=== PATIENT | male | born 1960 | race Caucasian/White ===

== ENCOUNTER 2018-08-29 20:48 | Emergency (ER) | payer BC, OTHER ==
[~2018-08-29] VITALS: Ht 182.9 cm; Wt 96.7 kg
[~2018-08-29 20:48] MED LIST: APIX5TAB2 PO; ASP81CT PO; ATR20T PO; Famotidine PO; IBUP1TAB15 PO; METO25TA PO; MULT-974 PO; NAPR220T76 PO; PANT40SU PO; PARO30TA2 PO; PNT40TEC PO; VIBRID PO; VILA40TA PO
[2018-08-29 21:23] LABS: BASOPHILS # (AUTO) 0.1 10^3/uL (0.0-0.1); BASOPHILS % (AUTO) 1 % (0-10); EOSINOPHILS # (AUTO) 0.3 10^3/uL (0.0-0.3); EOSINOPHILS % (AUTO) 4 % (0-10); HEMATOCRIT 42 % (40-54); LYMPHOCYTES # (AUTO) 2.8 X 10^3 (1.0-4.0); LYMPHOCYTES % (AUTO) 35 % (12-44); MEAN CORPUSCULAR HEMOGLOBIN 28 PG (25-34); MEAN CORPUSCULAR HGB CONC 34 G/DL (32-36); MEAN CORPUSCULAR VOLUME 82 FL (80-99); MONOCYTES # (AUTO) 0.9 X 10^3 (0.0-1.0); MONOCYTES % (AUTO) 11 % (0-12); NEUTROPHILS % (AUTO) 50 % (42-75); PLATELET COUNT 397 10^3/uL (130-400); RED CELL DISTRIBUTION WIDTH 13.6 % (10.0-14.5); WHITE BLOOD COUNT 8.1 10^3/uL (4.3-11.0)
[2018-08-29 21:28] LABS: INR 0.9 (0.8-1.4); PROTHROMBIN TIME PATIENT 12.8 SEC (12.2-14.7)
[2018-08-29] MEDS ORDERED: ASPIRIN 81 MG CHEW (CHILDREN'S ASA) PO ONE (21:30)
[2018-08-29 21:38] LABS: ALANINE AMINOTRANSFERASE 35 U/L (0-55); ALBUMIN 4.3 GM/DL (3.2-4.5); ALKALINE PHOSPHATASE 143 U/L (40-136); AMYLASE 61 U/L (25-125); BILIRUBIN,TOTAL 0.4 MG/DL (0.1-1.0); BUN/CREATININE RATIO 10; CALCIUM 10.4 MG/DL (8.5-10.1); CARBON DIOXIDE 22 MMOL/L (21-32); CHLORIDE 105 MMOL/L (98-107); GFR ESTIMATED > 60; GLUCOSE 109 MG/DL (70-105); LIPASE 34 U/L (8-78); MAGNESIUM 2.1 MG/DL (1.8-2.4); POTASSIUM 3.7 MMOL/L (3.6-5.0); SODIUM 139 MMOL/L (135-145); TOTAL PROTEIN 7.7 GM/DL (6.4-8.2)
[2018-08-29] MEDS ORDERED: NS 100 ML (IVPB) BAG IV ONE (23:00)
[2018-08-29] MEDS ORDERED: IOHEXOL 350 MG/ML 150 ML (OMNIPAQUE 350) VIAL IV ONE (23:00)
[2018-08-29] MEDS ORDERED: HOLD METFORMIN - RECEIVED CONTRAST 20 ML VIAL IV SCH (23:00)
[2018-08-30] MEDS ORDERED: METH4TAB PO (00:37)
--- NOTE | 2018-08-30 00:37 | ED Chest Pain ---
General Chief Complaint: Chest Wall Stated Complaint: PAIN IN BOTTOM OF RIB CAGE Nursing Triage Note: Patient reports in his R lower rib area x 1 week that became much worse this afternoon about 2. patient reports pain is worse with deep breathing, walking and laying back Nursing Sepsis Screen: No Definite Risk Source: patient History of Present Illness Date Seen by Provider: Aug 29, 2018 Time Seen by Provider: 21:10 Initial Comments PT ARRIVES VIA POV FROM HOME STATES THAT FOR THE LAST WEEK HE HAS HAD INTERMITTENT PAIN TO RIGHT ANTERIOR LOWER RIB AREA PAIN IS WORSE WITH DEEP BREATHS, RAISING HIS ARMS, LAYING FLAT AND STRETCHING, ETC DOES NOT FEEL SHORT OF BREATH NO FEVER NO COUGH NO SWEATS OR FEVER/CHILLS NO RECENT ILLNESS NO SWELLING IN LEGS / FEET OR PAIN IN CALVES PT STATES PAIN BEGAN AFTER PUTTING UP A "SLIP N' SLIDE" A WEEK AGO, THEN WAS PLAYING ON IT, AND HIT HARD ON HIS CHEST HE WAS PLAYING ON IT, GOING DOWN THE SLIDE ON HIS FRONT SIDE PT HAS ALSO BEEN HELPING FAMILY MOVE ALL WEEK--LIFTING BOXES, ETC. THESE MOVEMENTS MAKE PAIN WORSE PT STATES HE DID HAVE DVT IN LEFT LEG AND HAD BILATERAL P.E.'[S IN 2014--DUE TO TRAUMA TO LEFT LEG WAS ON BLOOD THINNERS FOR 6 MONTHS AND NO PROBLEMS SINCE HAD NOT BEEN TAKING ANY ASPIRIN UNTIL A MONTH AGO--STARTED TAKING A BABY ASPIRIN STATES THIS PAIN "FEELS A LITTLE LIKE" THE PAIN HE HAD WITH P.E. AND "GOT SCARED" AND WORRIED HE HAS ANOTHER P.E. PT HAS NOT TAKEN ANYTHING FOR PAIN UNTIL TONIGHT---TOOK ADVIL PM, AN ALEVE AND 1 BABY ASPIRIN TONIGHT SYMPTOMS NO DIFFERENT TONIGHT HAS NOT SOUGHT CARE UNTIL TONIGHT PT IS NOT HAVING ANY PAIN NOW PCP: DR. CARRILLO Allergies and Home Medications Allergies Coded Allergies: No Known Drug Allergies (Unverified , 01/05/12) Home Medications Apixaban 5 Mg Tablet, 10 MG PO BID TAKE 2 TABLETS BY MOUTH TWICE DAILY FOR 5 DAYS THEN DECREASE DOSE TO 1 TABLET BY MOUTH TWICE DAILY Prescribed by: ALBIN RUBIO on 01/24/14 1021 Methylprednisolone 4 Mg Tab.ds.pk, 4 MG PO UD Prescribed by: LUISA DA SILVA on 08/30/18 0037 Vilazodone Hydrochloride 40 Mg Tablet, 40 MG PO HS, (Reported) [Famotidine] 20 MG TABLET, 20 MG PO BID Prescribed by: ALBIN RUBIO on 01/24/14 1021 Patient Home Medication List Home Medication List Reviewed: Yes Review of Systems Review of Systems Constitutional: no symptoms reported; No diaphoresis, No dizziness, No fever Respiratory: No Symptoms Reported; Denies Cough, Denies Orthopnea, Denies Shortness of Air Cardiovascular: See HPI; Denies Edema, Denies Irregular Heart Rate, Denies Lightheadedness, Denies Palpitations, Denies Syncope Gastrointestinal: No Symptoms Reported; Denies Abdominal Pain, Denies Nausea, Denies Vomiting Genitourinary: No Symptoms Reported Musculoskeletal: see HPI Skin: no symptoms reported Psychiatric/Neurological: No Symptoms Reported Endocrine: No Symptoms Reported Hematologic/Lymphatic: See HPI Past Lezqfdr-Gsgzks-Ebbnux Hx Patient Social History Alcohol Use: Denies Use Recreational Drug Use: No Smoking Status: Never a Smoker 2nd Hand Smoke Exposure: No Recent Foreign Travel: No Contact w/Someone Who Travel: No Recent Infectious Disease Expo: No Recent Hopitalizations: No Immunizations Up To Date Date of Influenza Vaccine: Jan 23, 2012 Past Medical History Surgeries: Yes (SHOULDER SURGERY; CARDIAC CATH--NORMAL) Orthopedic Respiratory: Yes (BILATERAL P.E.'S DUE TO DVT LEFT LEG--FROM TRAUMA TO LEG 2014) Pulmonary Embolism Cardiac: Yes (DVT LEFT LEG DUE TO TRAUMA, FOLLOWED BY BILATERAL P.E.'S 2014--ON ANTICOAGULANTS X 6 MONTHS) Deep Vein Thrombosis Neurological: No Reproductive Disorders: No Genitourinary: No Gastrointestinal: No Musculoskeletal: No Endocrine: No HEENT: No Cancer: No Psychosocial: Yes Depression Integumentary: No Blood Disorders: Yes (DVT/P.E.) Physical Exam Vital Signs Vital Signs - First Documented 08/29/18 08/30/18 20:58 00:52 Temp 98.5 Pulse 69 Resp 18 B/P (MAP) 135/101 (112) Pulse Ox 96 O2 Delivery Room Air Capillary Refill : Less Than 3 Seconds Height, Weight, BMI Height: 6'0.00" Weight: 213lbs. 2.0oz. 96.729070ys; 28.48 BMI Method:Stated General Appearance: No Apparent Distress, WD/WN Neck: Full Range of Motion, Normal Inspection, Non Tender, Supple; No Carotid Bruit, No JVD Respiratory: Normal Breath Sounds, No Accessory Muscle Use, No Respiratory Distress, Other (TENDERNESS TO RIGHT ANTERIOR LOWER RIB AREA. PALPATION REPRODUCES PAIN. NO CREPITANCE OR SUB Q AIR. NO EXTERNAL EVIDENCE OF TRAUMA) Cardiovascular: Regular Rate, Rhythm, No Edema, No JVD, No Murmur Gastrointestinal: Normal Bowel Sounds, No Organomegaly, No Pulsatile Mass, Non Tender, Soft Extremity: Normal Capillary Refill, Normal Inspection, Normal Range of Motion, Non Tender, No Calf Tenderness, No Pedal Edema Neurologic/Psychiatric: Alert, Oriented x3, No Motor/Sensory Deficits, motor vehicle examiner II- XII Norm as Tested Skin: Normal Color, Warm/Dry; No Ecchymosis Progress/Results/Core Measures Results/Orders Lab Results Laboratory Tests Test 08/29/18 21:00 Range/Units White Blood Count 8.1 4.3-11.0 10^3/uL Red Blood Count 5.07 4.35-5.85 10^6/uL Hemoglobin 14.0 13.3-17.7 G/DL Hematocrit 42 40-54 % Mean Corpuscular Volume 82 80-99 FL Mean Corpuscular Hemoglobin 28 25-34 PG Mean Corpuscular Hemoglobin Concent 34 32-36 G/DL Red Cell Distribution Width 13.6 10.0-14.5 % Platelet Count 397 130-400 10^3/uL Mean Platelet Volume 9.0 7.4-10.4 FL Neutrophils (%) (Auto) 50 42-75 % Lymphocytes (%) (Auto) 35 12-44 % Monocytes (%) (Auto) 11 0-12 % Eosinophils (%) (Auto) 4 0-10 % Basophils (%) (Auto) 1 0-10 % Neutrophils # (Auto) 4.0 1.8-7.8 X 10^3 Lymphocytes # (Auto) 2.8 1.0-4.0 X 10^3 Monocytes # (Auto) 0.9 0.0-1.0 X 10^3 Eosinophils # (Auto) 0.3 0.0-0.3 10^3/uL Basophils # (Auto) 0.1 0.0-0.1 10^3/uL Prothrombin Time 12.8 12.2-14.7 SEC INR Comment 0.9 0.8-1.4 Activated Partial Thromboplast Time 26 24-35 SEC Sodium Level 139 135-145 MMOL/L Potassium Level 3.7 3.6-5.0 MMOL/L Chloride Level 105 98-107 MMOL/L Carbon Dioxide Level 22 21-32 MMOL/L Anion Gap 12 5-14 MMOL/L Blood Urea Nitrogen 12 7-18 MG/DL Creatinine 1.20 0.60-1.30 MG/DL Estimat Glomerular Filtration Rate > 60 BUN/Creatinine Ratio 10 Glucose Level 109 H 70-105 MG/DL Calcium Level 10.4 H 8.5-10.1 MG/DL Corrected Calcium 10.2 H 8.5-10.1 MG/DL Magnesium Level 2.1 1.8-2.4 MG/DL Total Bilirubin 0.4 0.1-1.0 MG/DL Aspartate Amino Transf (AST/SGOT) 24 5-34 U/L Alanine Aminotransferase (ALT/SGPT) 35 0-55 U/L Alkaline Phosphatase 143 H 40-136 U/L Myoglobin 29.2 10.0-92.0 NG/ML Troponin I < 0.028 <0.028 NG/ML B-Type Natriuretic Peptide 10.5 <100.0 PG/ML Total Protein 7.7 6.4-8.2 GM/DL Albumin 4.3 3.2-4.5 GM/DL Amylase Level 61 25-125 U/L Lipase 34 8-78 U/L My Orders Orders - LUISA DA SILVA DO Cbc With Automated Diff (08/29/18 21:16) Magnesium (08/29/18 21:16) Chest 1 View, Ap/Pa Only (08/29/18 21:16) Ekg Tracing (08/29/18 21:16) Cardiac Profile 1 (08/29/18 21:16) Comprehensive Metabolic Panel (08/29/18 21:16) Myoglobin Serum (08/29/18 21:16) Protime With Inr (08/29/18 21:16) Partial Thromboplastin Time (08/29/18 21:16) Monitor-Rhythm Ecg Trace Only (08/29/18 21:16) Ed Iv/Invasive Line Start (08/29/18 21:16) Lipase (08/29/18 21:16) Amylase (08/29/18 21:16) BNP (08/29/18 21:16) Aspirin Chewable Tablet (Baby Aspirin Ch (08/29/18 21:30) Ct Angio Chest W (08/29/18 21:16) Iohexol Injection (Omnipaque 350 Mg/Ml 1 (08/29/18 23:00) Received Contrast (Hold Metformin- Contr (08/29/18 23:00) Ns (Ivpb) (Sodium Chloride 0.9% Ivpb Bag (08/29/18 23:00) Medications Given in ED Vital Signs/I&O 08/29/18 08/30/18 20:58 00:52 Temp 98.5 98.5 Pulse 69 70 Resp 18 16 B/P (MAP) 135/101 (112) 125/86 (99) Pulse Ox 96 97 O2 Delivery Room Air Blood Pressure Mean: 112 Progress Progress Note : Progress Note UNEVENTFUL ER STAY NO PAIN DURING STAY Initial ECG Impression Date: Aug 29, 2018 Initial ECG Impression Time: 21:48 Initial ECG Rate: 73 Initial ECG Rhythm: Normal Sinus Diagnostic Imaging Comments CXR--NO ACUTE PROCESS, PENDING RADIOLOGIST REVIEW CT CHEST ANGIOGRAM-NORMAL, NO P.E. PER [facility] VIA FAX AT [phone] Reviewed: Reviewed by Me Departure Impression Primary Impression: Right-sided chest wall pain Disposition: 01 HOME, SELF-CARE Condition: Stable Departure-Patient Inst. Referrals: RICHARD CARRILLO MD (PCP/Family) Primary Care Physician Patient Instructions: Bruised Rib (DC), Chest Pain That Is Not Caused by the Heart (DC), Costochondritis (DC) Add. Discharge Instructions: ACTIVITIES TOLERATED ALTERNATE ICE AND HEAT TO AREA AT 20 MINUTE INTERVALS FOLLOW UP WITH YOUR DR IN 3-4 DAYS IF NO BETTER All discharge instructions reviewed with patient and/or family. Voiced understanding. Scripts Methylprednisolone (Medrol) 4 Mg Tab.ds.pk 4 MG PO UD, #1 PKG Prov: REKHALUISAMarlen Fonseca DO 08/30/18 Images Torso/Trunk 1 - Mild, Tenderness REKHALUISA K DO Aug 30, 2018 00:37
[2018-08-30 00:52] VITALS: BP 125/86
--- NOTE | 2018-08-30 06:39 | Diagnostic Imaging Report ---
INDICATION: Chest and rib pain COMPARISON: 01/23/14 FINDINGS: Single view chest demonstrates clear lungs bilaterally. The heart is normal. There is no pneumothorax. The osseous structures normal. IMPRESSION: Negative chest. Dictated by: Dictated on workstation # [id number]
--- NOTE | 2018-08-30 07:30 | Diagnostic Imaging Report ---
PROCEDURE: CT angiography of the chest with contrast. TECHNIQUE: Multiple contiguous axial images were obtained through the chest after uneventful bolus administration of intravenous contrast. 2D reconstructed CTA MIP acquisitions were also performed. Auto Exposure Controls were utilized during the CT exam to meet ALARA standards for radiation dose reduction. INDICATION: Right chest wall pain. COMPARISON: Chest radiograph 01/23/2014. FINDINGS: No pulmonary artery filling defects. Normal caliber thoracic aorta. Normal heart size. No pericardial effusion. Mildly prominent but subcentimeter mediastinal lymph nodes and right hilar lymph nodes. No dense consolidation in the lungs. No pleural effusion or pneumothorax. No endobronchial lesions. Osseous structures are intact. Visualized upper abdominal contents are unremarkable. IMPRESSION: 1. No pulmonary emboli. 2. Nonspecific prominence of the mediastinal and right hilar lymph nodes which remain subcentimeter. Dictated by: Dictated on workstation # [id number]
== END 2018-08-30 00:52 | disposition home or self-care (01) ==
LOC: EDUNIT# 20:48 → ER 20:50
DX: R07.89 Other chest pain (principal); F32.9 Major depressive disorder, single episode, unspecified; Z86.711 Personal history of pulmonary embolism; Z86.718 Personal history of other venous thrombosis and embolism; Z79.01 Long term (current) use of anticoagulants; Z79.82 Long term (current) use of aspirin
CPT/HCPCS: 36415; 71045; 71275; 80053; 82150; 83690; 83735; 83874; 83880; 84484; 85025; 85610; 85730; 93005; 93041

== ENCOUNTER → 2020-01-19 | Outpatient (CLI) | payer OTHER ==
[~2020-01-19] MED LIST changes: +METH4TAB PO
== END ==
LOC: LABNPT 08:50
PROVIDERS: ATTEND Orthopaedic Surgery
DX: Z01.812 Encounter for preprocedural laboratory examination (principal); Z20.828 Contact with and (suspected) exposure to other viral communicable diseases
CPT/HCPCS: 87635

== ENCOUNTER 2020-08-10 05:42 | Outpatient (CLI) | payer BC ==
[~2020-08-10] VITALS: Ht 182.9 cm; Wt 103.6 kg
[2020-08-10] MEDS ORDERED: VNL75T PO (11:38)
[2020-08-10] MEDS ORDERED: MULT-1136 PO (11:38)
== END 2020-08-10 13:33 | disposition home or self-care (01) ==
LOC: PREOP 05:42
PROVIDERS: ATTEND Surgery
DX: Z01.818 Encounter for other preprocedural examination (principal)

== ENCOUNTER 2020-08-16 08:56 | Day surgery (SDC) | payer BC ==
[~2020-08-16] VITALS: Ht 182.9 cm; Wt 103.6 kg
[2020-08-16] VITALS (13 sets, daily range): BP systolic 126–142; BP diastolic 81–97
[~2020-08-16 08:56] MED LIST changes: +MULT-1136 PO; +VNL75T PO
[2020-08-16] MEDS ORDERED: NS IV 500 ML 500 ML ONE (09:13)
[2020-08-16] MEDS ORDERED: LIDOCAINE JELLY 2% 6 ML SYRINGE MM PRN (09:15)
[2020-08-16] MEDS ORDERED: fentaNYL INJ 100 MCG/2 ML AMP IVP ONE (09:15)
[2020-08-16] MEDS ORDERED: MIDAZOLAM 5 MG/5 ML (VERSED) VIAL IV ONE (09:15)
[2020-08-16] MEDS ORDERED: NS IV 500 ML 500 ML IV ONE (09:20)
[2020-08-16] MEDS ORDERED: MIDAZOLAM 5 MG/5 ML (VERSED) VIAL ONE (09:54)
[2020-08-16] MEDS ORDERED: fentaNYL INJ 100 MCG/2 ML AMP ONE (09:55)
--- NOTE | 2020-08-16 10:38 | Conscious Sedation/ASA ---
Conscious Sedation Pre-Proced Time 09:00 ASA Score 2 For ASA 3 and 4: Consider anesthesia and medical clearance. Also, for patients with a history of failed moderate sedation consider anesthesia. Airway Lungs Heart ASA score ASA 1: a normal healthy patient ASA 2: a patient with a mild systemic disease (mid diabetes, controlled hypertension, obesity ASA 3: a patient with a severe systemic disease that limits activity (angina, COPD, prior Myocardial infarction) ASA 4: a patient with an incapacitating disease that is a constant threat to life (CHF, renal failure) ASA 5: a moribund patient not expected to survive 24 hrs. (ruptured aneurysm) ASA 6: a declared brain- patient whose organs are being harvested. For emergent operations, add the letter E after the classification Mallampati Classification Grade 2 Sedation Plan Analgesia, Amnesia, Plan communicated to team members, Discussed options with patient/fam, Discussed risks with patient/fam The patient is an appropriate candidate to undergo the planned procedure, sedation, and anesthesia. The patient immediately re-assessed prior to indication. DEJUAN KLEIN MD Aug 16, 2020 10:38
--- NOTE | 2020-08-16 10:39 | Progress Note-Pre Operative ---
Pre-Operative Progress Note H&P Reviewed The H&P was reviewed, patient examined and no changes noted. Date Seen by Provider: Aug 16, 2020 Time Seen by Provider: 09:00 Date H&P Reviewed: Aug 16, 2020 Time H&P Reviewed: 09:00 Pre-Operative Diagnosis: screening colo, hx colon polyp DEJUAN KLEIN MD Aug 16, 2020 10:39
--- NOTE | 2020-08-16 10:40 | Progress Note-Post Operative ---
Post-Operative Progess Note Surgeon (s)/Inseamer (s) Surgeon DEJUAN KLEIN MD Inseamer: none Pre-Operative Diagnosis screening colo, hx colon polyp Post-Operative Diagnosis chronic stage 2-3 ext and int hemorrhoids, mild sigmoid diverticulosis. Procedure & Operative Findings Date of Procedure 08/16/20 Procedure Performed/Findings colonoscopy Anesthesia Type cs Estimated Blood Loss Estimated blood loss (mL): minimal Specimens/Packing Specimens Removed none DEJUAN KLEIN MD Aug 16, 2020 10:40
--- NOTE | 2020-08-16 10:42 | Discharge Inst-Surgical ---
D/C Lap Instructions-ERNIE Follow Up 10 years Activity as tolerated High Fiber Diet 25g or more per day Avoid Alcohol, Caffeine, Spicy [place] and Acid foods. Drink 64 fluid oz or more of fluids per day. Symptoms to Report: Fever over 101 degree F, Nausea/Vomiting If any problems/questions: Contact your physician or go to Emergency Room DEJUAN KLEIN MD Aug 16, 2020 10:41
[2020-08-16] MEDS ORDERED: morphine INJ 10 MG/ML 1ML (SYR OR VIAL) IVP PRN ×2 (10:45)
[2020-08-16] MEDS ORDERED: ACETAMINOPHEN 325 MG TABLET PO PRN (10:45)
[2020-08-16] MEDS ORDERED: HYDROcodone/APAP 5 MG/325 MG (LORTAB) TAB PO PRN (10:45)
[2020-08-16] MEDS ORDERED: ONDANSETRON 4 MG/2 ML (SDV) Z0FRAN IVP PRN (10:45)
--- NOTE | 2020-08-16 15:56 | OPERATIVE REPORT ---
DATE OF SERVICE: 08/16/2020 ATTENDING PRIMARY CARE PHYSICIAN: Dr. Christie Coleman. PREOPERATIVE DIAGNOSIS: Screening colonoscopy with personal history of colon polyp. POSTOPERATIVE DIAGNOSES: Chronic between stage II and III external and internal hemorrhoids, mild sigmoid diverticulosis. PROCEDURE: Colonoscopy. SURGEON: Dejuan Klein MD. ANESTHESIA: Conscious sedation. ESTIMATED BLOOD LOSS: Minimal. FINDINGS: Chronic between stage II and III external and internal hemorrhoids, mild sigmoid diverticulosis. DISPOSITION: The patient tolerated the procedure well. INDICATIONS: The patient is a 59-year-old male referred over to us for screening colonoscopy. He states his last colonoscopy was approximately 5 years ago and he reports that a polyp was identified and removed and found to be benign. However, he was unsure of what type of polyp it was. He states that he is otherwise doing well. He does not report any major issues with diarrhea nor constipation as well as no red blood per rectum nor any dark tarry stools. He also does not report any family history of colon cancer. DESCRIPTION OF PROCEDURE: The patient was brought to the endoscopy suite, laid in left lateral decubitus position. After adequate IV pain and sedative medications and conscious sedation anesthesia, a digital rectal examination was performed, which revealed chronic between stage II and III external and internal hemorrhoids with some mild edema, no active bleeding. Normal sphincter tone was felt and there were no palpable masses. Prostate gland was palpable and appeared normal. The endoscope was then intubated to the anus and rectum gently insufflated. The endoscope was then advanced through the valves of [place] of the rectum with no polyps or any neoplasms identified. Through the sigmoid colon, there was very mild diverticulosis. The endoscope was then advanced to the remainder of the descending, transverse and ascending colon to the cecum, which were normal. There were no polyps or any neoplasms identified. The endoscope was then slowly withdrawn while taking a second look and suctioning of residual air with no additional findings. The patient tolerated the procedure well. We will recommend a high fiber diet with at least 30 grams of fiber daily as well as significant amounts of water to promote soft stools on a daily basis. If he is asymptomatic, he does not need another colonoscopy for another 10 years. Job ID: [id number] DocumentID: [id number] Dictated Date: 08/16/2020 10:09:22 Slag Production Worker Date: 08/16/2020 15:53:41 Dictated By: DEJUAN KLEIN MD
== END 2020-08-16 10:55 | disposition home or self-care (01) ==
LOC: ENDO 08:56
PROVIDERS: ATTEND Surgery
DX: Z12.11 Encounter for screening for malignant neoplasm of colon (principal); K64.1 Second degree hemorrhoids; K57.30 Diverticulosis of large intestine without perforation or abscess without bleeding; F32.9 Major depressive disorder, single episode, unspecified; K21.9 Gastro-esophageal reflux disease without esophagitis; Z86.010 Personal history of colon polyps; Z79.82 Long term (current) use of aspirin; Z79.899 Other long term (current) drug therapy; Z86.718 Personal history of other venous thrombosis and embolism; Z80.0 Family history of malignant neoplasm of digestive organs

== ENCOUNTER → 2021-12-31 | Outpatient (CLI) | payer BC, OTHER ==
--- NOTE | 2021-12-31 08:34 | Diagnostic Imaging Report ---
INDICATION: Abdominal pain. PROCEDURE: Ultrasound abdomen complete. TECHNIQUE: Multiple real-time grayscale images were obtained of the abdomen in various projections. COMPARISON: None. FINDINGS: The liver is normal in size, shape and echotexture. There are no focal lesions. No intra or extrahepatic biliary dilatation is present. The common bile duct is nondilated and measures 0.4 cm. There is no evidence of cholelithiasis or gallbladder wall thickening or pericholecystic fluid. Sonographic Euceda's sign is negative. The visualized portions of the head and proximal body of the pancreas are within normal limits. The distal body and tail are not well visualized due to overlying bowel gas. Both kidneys are normal in size and echogenicity. The cortical thickness and the corticomedullary differentiation is well maintained. The right kidney measures 11.6 cm. The left kidney measures 10.7 cm. There is no evidence of calculi, focal mass or hydronephrosis. The spleen is not enlarged. The visualized upper aorta and IVC are normal in course and caliber. There is no ascites in the upper abdomen. IMPRESSION: 1. Negative abdominal sonogram. Please note some structures were suboptimally visualized due to overlying bowel gas. If symptoms persist consider cross-sectional imaging such as CT or MRI to further evaluate. Dictated by: Dictated on workstation # [id number]
== END ==
LOC: RAD 07:15
PROVIDERS: ATTEND Internal Medicine
DX: R10.9 Unspecified abdominal pain (principal)
CPT/HCPCS: 76700

== ENCOUNTER → 2022-09-17 | Outpatient (CLI) | payer OTHER ==
--- NOTE | 2022-09-17 16:17 | Diagnostic Imaging Report ---
INDICATION: Left leg pain. COMPARISON: None. TECHNIQUE: Duplex, grayscale, and color-flow imaging of the left lower extremity venous system was performed. FINDINGS: The common femoral vein, superficial femoral vein, profunda femoris, and popliteal veins are normal. These vessels show normal compressibility, color flow, and Doppler augmentation. The deep calf veins, although not very well seen, demonstrate no distinct intraluminal thrombus. IMPRESSION: Negative venous Doppler of the left lower extremity. Dictated by: Dictated on workstation # [id number]
== END ==
LOC: RAD 15:24
PROVIDERS: ATTEND Internal Medicine
DX: M79.605 Pain in left leg (principal)